=== PATIENT | male | born 1980 | race Caucasian/White ===

== ENCOUNTER → 2023-01-31 14:19 | Outpatient (CLI) | payer BC, SELFPAY ==
--- NOTE | ~2023-01-31 | CT_ITS ---
EXAMINATION: CT chest high resolution wo sd DATE: 01/31/2023 14:35 INDICATION: Shortness of breath TECHNIQUE: Computed tomography (CT) of the chest was performed without intravenous contrast. The dose -length product (DLP) was 317.83 mGy-cm. Automated exposure control and iterative reconstruction tech nique were employed. COMPARISON: None FINDINGS: The lungs are free of acute opacities. No pleural effusion or pneumothorax. No pathological ly enlarged thoracic lymph nodes are identified. The heart size is normal. Calcified nodules of the r ight middle lobe and calcified right hilar and subcarinal lymph nodes are consistent with old granulo matous disease/prior infection. The visualized osseous structures are unremarkable. IMPRESSION: 1. No acute cardiopulmonary abnormality. Reviewed, dictated and finalized at location A.
== END ==
PROVIDERS: PCP Family Medicine; Visit Provider Family Medicine
DX: R09.89 Other specified symptoms and signs involving the circulatory and respiratory systems (principal)
CPT/HCPCS: 71250

== ENCOUNTER 2023-03-06 02:11 | Day surgery (SDC) | payer BC, SELFPAY ==
[2023-03-02 08:40] VITALS: BMI 27.2
[2023-03-06 11:53] VITALS: BP 120/85; PULSE 64; RESP 18; TEMP 36.6; O2SAT 100
[2023-03-06] MEDS: LACTATED RINGERS 1,000 ML 150 ML IV CONT (12:04)
--- NOTE | 2023-03-06 12:19 | WPDHPUPDATE1 ---
History and Physical Update Update Date/Time: 03/06/23 12:19 History and Physical has been reviewed, including an updated exam of the patient. There are NO changes in the patient's condition. Risks, benefits, and alternatives have been discussed and questions answered. Patient agrees to proceed with procedure.
--- NOTE | 2023-03-06 12:25 | P.PNAN_ITS ---
Anes - Initial Pre Proc Eval Procedure: Operation Date: 03/06/23 13:15 Proposed Procedures p Esophagogastroduodenoscopy - Randell Herzog MD Date/Time: 03/06/23 12:25 Surgeon: Randell Herzog MD Pre Op Diagnosis: GERD without esophagitis,Right upper quadrant pain Patient Data Age: 42 Gender: M Height: 1.8 m Weight: 87 kg Last Vital Signs Temp 97.9 F 03/06/23 11:53 Pulse 64 03/06/23 11:53 Resp 18 03/06/23 11:53 BP 120/85 03/06/23 11:53 Pulse Ox 100 03/06/23 11:53 O2 Del Method Room Air 03/06/23 11:53 Allergies Allergy/AdvReac Type Severity Reaction Status Date / Time No Known Allergies Allergy Verified 03/06/23 11:52 Home Medications Medication Instructions Recorded Confirmed Type famotidine 20 mg tablet (Pepcid) 20 mg PO BID 1 month #60 tabs 02/20/23 03/06/23 Rx fluticasone propionate 50 2 spray intranasal DAILY 03/02/23 03/02/23 History mcg/actuation nasal spray,suspension Patient hx anesthesia problems: none Family hx anesthesia problems: none Results Review: All pre-operative results and documents have been reviewed as part of the pre- operative evaluation. [facility] Family History Family History Mother Family history of thyroid disease Father Hypertension Other Family history of cardiovascular disease Social History Social History Smoking status: Never smoker Alcohol intake: current Substance use: never Substance use type: does not use Lack of Transportation: No Lack of Food: Never True Current Housing: I Have Housing Concerned About Future Housing: No Difficulty Paying Gas/Electric Bills: No Difficulty Paying for Meds: No Currently Unemployed: No Education: Master's Degree or Higher Difficulty w/ Childcare or Family Care: No Living arrangements: with family Spiritual care concerns: No Anes - Eval Final PreProcedure Day of Procedure 03/06/23 12:25 Patient weight: normal Heart: regular rate and rhythm Lungs: clear to auscultation Airway: Mallampati scale class II Neurological: alert and oriented Last oral intake: >/= 8 hours ASA classification: II Emergent: no Anesthetic plan: proceed Anesthesia type and monitoring: general GIVS and standard monitoring Results Review: All pre-operative results and documents have been reviewed as part of the pre- operative evaluation. Informed Consent: The patient's anesthetic plan and its attendant risks and benefits were discussed with the patient/family/POA. Questions were solicited and answers provided to the satisfaction of the patient/family/POA.
[2023-03-06] MEDS: BENZOCAINE (*SP) 60 ML SPRAY CAN (HURRICAINE) 1 SPRAY MUCOUS MEM (12:29)
[2023-03-06 12:38] VITALS: BP 110/75; PULSE 62; RESP 16; O2SAT 98
[2023-03-06 12:48] VITALS: BP 122/91; PULSE 75; RESP 25; O2SAT 100
== END 2023-03-06 13:10 | disposition home or self-care (01) ==
PROVIDERS: PCP Family Medicine; Visit Provider Internal Medicine Gastroenterology
PROC: 0DJ08ZZ Inspection of Upper Intestinal Tract, Via Natural or Artificial Opening Endoscopic (ICD-10-PCS; CPT 43235; principal; 2023-03-06 13:15)
DX: R14.0 Abdominal distension (gaseous) (principal); R10.11 Right upper quadrant pain
CPT/HCPCS: 43239; 88305; J2704; J7120

== ENCOUNTER 2023-04-27 11:46 | Outpatient (CLI) | payer BC, SELFPAY ==
--- NOTE | ~2023-04-27 | NM_ITS ---
EXAMINATION: NM hepatobiliary wo pharm DATE: 04/27/2023 14:11 INDICATION: Right upper quadrant abdominal pain. COMPARISON: None. TECHNIQUE: 3.5 mCi Tc-99m mebrofenin (Choletec) was administered intravenously. Scintigraphic images of the abdomen were obtained for one hour. Then, the patient drank 8 oz Ensure, and imaging was cont inued for 60 minutes. FINDINGS: There is normal clearance of radiotracer from the blood pool. There is homogeneous tracer u ptake by the liver. Activity progresses to the bowel and gallbladder. Gallbladder ejection fraction (GBEF) was 18%. Note that with this technique, normal GBEF >= 33%. IMPRESSION: 1. Low gallbladder ejection fraction, consistent with gallbladder dysfunction and/or chronic cholecy stitis. Reviewed, dictated and finalized at location A. [employer]S RECONDITIONER IMPRESSION: 1. Low gallbladder ejection fraction, consistent with gallbladder dysfunction and/or chronic cholecystitis.
== END 2023-04-27 11:47 | disposition home or self-care (01) ==
LOC: ANHIMG 11:52
PROVIDERS: PCP Family Medicine; Visit Provider Nurse Practitioner Family
DX: R10.11 Right upper quadrant pain (principal); R14.0 Abdominal distension (gaseous)
CPT/HCPCS: 78226; A9537

== ENCOUNTER 2023-05-24 01:36 | Day surgery (SDC) | payer BC, SELFPAY ==
[2023-05-22 12:16] VITALS: BMI 27.1
--- NOTE | 2023-05-22 12:21 | PC.NURSE ---
Report to the Outpatient Waiting Room, entrance under the green pavilion located off [facility], at time 11:00 on date 05/24/23. Planned Procedure Time: 1:00. Time changes happen often and if your time is changed the preop area will call you the afternoon before. - You and your visitor will be asked to self-screen and do not enter if you have any COVID symptoms. - A mask is optional within the hospital at this time. Patients may have clear liquids (water, carbonated beverages, clear teas, apple juice) until 3 hours prior to surgery with a maximum of 20 ounces. - No food from midnight until time of surgery Take the following medications with a SIP of water the morning of surgery: NONE DO NOT STOP ANY OF YOUR OTHER PRESCRIPTION MEDICATIONS PRIOR TO SURGERY ?EXCEPT THE FOLLOWING Medications to discontinue per physician: N/A Date to take last dose: N/A Please no make-up, nail malagasy, hairspray, perfume, deodorant, or body powder the day of surgery. No jewelry (including any body piercings) or valuables the day of surgery, leave them at home. Please take a shower or bath the night before, or the morning of, surgery with an antibacterial soap. Wear comfortable, loose fitting clothing. - Jewelry must be removed prior to entering the operating room. Rings and piercings that are not removed may be cut off. - The hospital will not accept responsibility for valuables. - Please leave all valuables, including medications, at home the day of surgery. If you are going home after surgery, a licensed mechanic welder truck driver must drive you home. - NO public transportation without another adult if you receive anesthesia. - We recommend that an adult stay with you for 24 hours following discharge. - We also recommend that you do not drive, make important decision, drink alcoholic beverages, or take any drugs that were not prescribed by your health care provider for at least 24 hours after your discharge time. Follow any additional instructions given to you from your surgeon. If you or anyone in your household have experienced Covid symptoms in the past week, please notify your surgeon or the nurse liaison at the phone number below for possible testing. Telephone instructions given to PT - ABIOLA MARTELL and asked if any additional questions and then verbalized understanding. Patient advised to call surgeon office or pre surgery nurse liaison [phone] if any additional questions.
[2023-05-24] VITALS (7 sets, daily range): BP systolic 113–134; BP diastolic 63–85; PULSE 59–98; RESP 12–16; TEMP 36.5–37.1; O2SAT 99–100
--- NOTE | 2023-05-24 11:26 | WPDANESEPPF ---
Anes - Initial Pre Proc Eval Procedure: Operation Date: 05/24/23 13:00 Proposed Procedures p Laparoscopic Cholecystectomy - Jose Davey MD Date/Time: 05/24/23 11:26 Surgeon: Jose Davey MD Pre Op Diagnosis: acalculus cholecystitis Patient Data Age: 43 Gender: M Height: 1.8 m Weight: 88.45 kg Allergies Allergy/AdvReac Type Severity Reaction Status Date / Time No Known Allergies Allergy Verified 05/22/23 12:16 Home Medications Medication Instructions Recorded Confirmed Type fluticasone propionate 50 2 spray intranasal DAILY 03/02/23 05/22/23 History mcg/actuation nasal spray,suspension omeprazole 20 mg capsule,delayed 20 mg PO DAILY 1 month #30 caps 04/17/23 05/22/23 Rx release Patient hx anesthesia problems: none Family hx anesthesia problems: none Results Review: All pre-operative results and documents have been reviewed as part of the pre-operative evaluation. [facility] Past Medical History Medical History Biliary dyskinesia Surgical History Surgical History Hx of appendectomy Open appendectomy 1997 Hx of fracture of clavicle Right clavicular resection 2009 Family History Family History Mother Family history of thyroid disease Father Hypertension Other Family history of cardiovascular disease Social History Social History Smoking status: Never smoker Alcohol intake: never Substance use: never Substance use type: does not use Lack of Transportation: No Lack of Food: Never True Current Housing: I Have Housing Concerned About Future Housing: No Difficulty Paying Gas/Electric Bills: No Difficulty Paying for Meds: No Currently Unemployed: No Education: Master's Degree or Higher Difficulty w/ Childcare or Family Care: No Living arrangements: with family Spiritual care concerns: No Anes - Eval Final PreProcedure Day of Procedure 05/24/23 11:26 Patient weight: normal Heart: regular rate and rhythm Lungs: clear to auscultation Airway: Mallampati scale class II Neurological: alert and oriented Last oral intake: >/= 8 hours ASA classification: II Emergent: no Anesthetic plan: proceed Anesthesia type and monitoring: general ETT and standard monitoring Results Review: All pre-operative results and documents have been reviewed as part of the pre-operative evaluation. Informed Consent: The patient's anesthetic plan and its attendant risks and benefits were discussed with the patient/family/POA. Questions were solicited and answers provided to the satisfaction of the patient/family/POA.
[2023-05-24] MEDS: LACTATED RINGERS 1,000 ML 30 ML IV CONT ×2 (11:45→14:16)
[2023-05-24] MEDS: ACETAMINOPHEN 500 MG TABLET 1000 MG PO (12:00)
[2023-05-24] MEDS: KETOROLAC 15 MG/ML VIAL (*BKC) IV PUSH (12:00)
[2023-05-24 12:16] LABS: Alanine Aminotransferase 28 U/L (6-50); Albumin Level 4.7 g/dL (3.5-5.1); Alkaline Phosphatase 40 U/L (38-126); Amylase 68 U/L (30-110); Aspartate Amino Transferase 25 U/L (17-59); Lipase 44 U/L (23-300)
--- NOTE | 2023-05-24 13:01 | WPDHPUPDATE1 ---
History and Physical Update Update Date/Time: 05/24/23 13:01 History and Physical has been reviewed, including an updated exam of the patient. There are NO changes in the patient's condition. Risks, benefits, and alternatives have been discussed and questions answered. Patient agrees to proceed with procedure.
[2023-05-24] MEDS: ceFAZolin 2 GM/D5W 50 ML 2 GM/50 ML BAG IVPB (13:07)
[2023-05-24] MEDS: BUPIVACAINE/EPINEPHRINE 0.5% 50 ML VIAL 20 ML INFILTRATE (13:36)
--- NOTE | 2023-05-24 14:02 | W.PM.PROC2 ---
Procedure Note - Detailed Date of Procedure 05/24/23 Pre-op Diagnosis acalculus chronic cholecystitis Post-op Diagnosis Same Procedure Performed Laparoscopic cholecystectomy Surgeon Jose Davey MD Customer Services Manager Александр VELASQUEZ Anesthesia General and Local Indications Patient is a 43-year-old man who started having right upper quadrant postprandial abdominal pain last November. This has been persistent and in fact is getting worse. His CT scan and abdominal ultrasound were both negative. His clinical history, however, is very suggestive of chronic cholecystitis. He had a HIDA scan which showed a low gallbladder ejection fraction of only 18%. He is taken to surgery now for laparoscopic cholecystectomy for acalculous chronic cholecystitis. Findings Mild chronic inflammation, normal liver, no biliary ductal dilatation. Description of Procedure Patient was taken to surgery and induced into general anesthesia. The abdomen is prepped and draped. Trocars were placed in the usual fashion using applied Stagee optical trocars and a 5 mm camera. Patient was placed in reverse Trendelenburg and adequate insufflation was carried out. I then took down some adhesions of the gallbladder. We used a laparoscopic aspirator and decompressed the gallbladder. The cholecystotomy was closed with a Vicryl endoloop. The gallbladder was then retracted anterosuperiorly. Traction was placed on the infundibulum and dissection was carried out in the cholecystohepatic triangle. The cystic duct and cystic artery were carefully dissected and defined. We dissected the gallbladder off the liver over half its length. The cystic duct and cystic artery were then securely clipped and divided. I continued dissecting the gallbladder free of its peritoneal attachments to the liver. Once it was completely freed, we placed the gallbladder in an Endo-Catch bag and retrieved it from the 03/21 epigastric trocar site. The epigastric trocar was then replaced. We elevated the liver and inspected the gallbladder fossa. It looked quite dry. I irrigated the right upper quadrant and suctioned the irrigant away. The irrigant was very clear as well. There was no evidence of bleeding or bile leakage. We then evacuated CO2 and removed the trocar sleeves. Skin wounds were closed with subcuticular 4-0 Monocryl skin suture. The wounds were dressed with Exofin surgical adhesive. Patient was awakened and taken to recovery in good condition. Sponge needle counts were correct x2. Estimated Blood Loss -5 Drains No Packing No Pathology Yes (Gallbladder) Complications No immediate complications Condition Stable Disposition PACU [facility] Billing Surgery - Charge Forward: Surgery Billing (Laparoscopic cholecystectomy)
--- NOTE | 2023-05-24 14:31 | SUR.PHASEI ---
1430: Simple mask removed.
== END 2023-05-24 15:38 | disposition home or self-care (01) ==
PROVIDERS: PCP Family Medicine; Visit Provider Surgery
PROC: 0FT44ZZ Resection of Gallbladder, Percutaneous Endoscopic Approach (ICD-10-PCS; CPT 47562; principal; 2023-05-24 13:00)
DX: K81.1 Chronic cholecystitis (principal); K21.9 Gastro-esophageal reflux disease without esophagitis
CPT/HCPCS: 47562; 36415; 80076; 82150; 83690; 86850; 86900; 86901; 88304; A9270; C1713; J0330; J0690; J1100; J1885; J2250; J2405; J2704; J3010; J7120